=== PATIENT | female | born 1985 | race Caucasian/White ===

== ENCOUNTER 2022-12-16 12:20 | Emergency (ER) | payer OTHER, SELFPAY ==
--- NOTE | ~2022-12-16 | XR_ITS ---
XR foot RT min 3V 12/16/2022 12:46 INDICATION: Right foot pain PROCEDURE: 4 views right foot COMPARISON: No prior studies for comparison. FINDINGS: Fracture, dislocation or subluxation is not identified. Lisfranc joint intact. The soft tis sues appear within normal limits. No foreign bodies are identified. IMPRESSION: 1: NO ACUTE BONE OR JOINT ABNORMALITY IDENTIFIED. Reviewed, dictated and finalized at location B.
[2022-12-16 12:36] VITALS: BP 119/74; PULSE 68; RESP 20; TEMP 36.5; O2SAT 100
--- NOTE | 2022-12-16 12:38 | ED.LOWEXIN ---
HPI - Extremity Injury (Lower) General Chief Complaint: Extremity Injury, Lower Stated Complaint: Right Ankle Injury Time Seen by Provider: 12/16/22 12:30 Source: patient, RN notes reviewed and old records reviewed Mode of arrival: ambulatory Limitations: no limitations History of Present Illness HPI Narrative: 37 year old female presents to [facility] with complaints right ankle foot injury which occurred yesterday when she stepped a plastic toy fish which caused her to twist her ankle causing pain to the lateral foot.Patient reports increased pain to the lateral right foot and plantar aspect of foot states pain 4-5 at rest but 10 with ambulation. Patient has strong pedal pulse to right foot, foot warm and mobility intact swelling is present to lateral aspect of right foot with mild bruising to plantar aspect of right foot. MD complaint: ankle injury and foot injury (right) Onset (ago): day(s) (1) Injury: Right: ankle and foot Type of Injury: inversion and other Place: home Severity scale (1-10): 5 Treatments prior to arrival: cold therapy and other (Ibuprofen) Related Data Home Medications Medication Instructions Recorded Confirmed norethindrone (contraceptive) 0.35 mg 12/16/22 mg tablet sertraline 50 mg tablet mg 12/16/22 Allergies Allergy/AdvReac Type Severity Reaction Status Date / Time morphine Allergy Rash Verified 12/16/22 12:34 Review of Systems Review of Systems: CONSTITUTIONAL: Denies fever, chills, or sweats. CARDIOVASCULAR: Denies chest pain, palpitations, or edema. RESPIRATORY: Denies cough or dyspnea. SKIN: Denies rash or itching. Denies laceration or abrasions MUSCULOSKELETAL: Reports pain and swelling to lateral aspect of right foot after inversion injury to right ankle NEUROLOGIC: Denies numbness, or weakness. All systems reviewed & are unremarkable except as noted in HPI and below PMFSH Past Medical History Medical History (Updated 12/16/22 @ 13:06 by Shira Corbett NP) Anxiety and depression Fracture of left foot Surgical History Surgical History (Updated 12/16/22 @ 12:52 by Shira Corbett NP) Hx of appendectomy Previous section Family History Family History (Updated 12/16/22 @ 12:53 by Shira Corbett NP) Mother Family history of thyroid problem Social History Social History (Updated 12/16/22 @ 12:53 by Shira Corbett NP) Smoking packs per day: 0.5 Smoking cigarettes per day: 10.0 Years smoked: 17 Smoking pack-years: 8.50 Smoking status: Current every day smoker Tobacco type: cigarettes Alcohol intake: current Alcohol use details: social Substance use type: does not use Living arrangements: with family Gender identity (if verbalized by the patient): Female Comments At time of signature, agree with nursing past medical, surgical, social and family history. There is no relevant family history pertinent to the presenting complaint Exam Narrative: GENERAL: Well-appearing, well-nourished, and in no acute distress. HEAD: Normocephalic, atraumatic. EYES: PERRLA, conjunctivae clear NECK: Supple. CHEST: Speaks in full sentences. No respiratory distress. HEART: Regular rate and rhythm. Normal and equal peripheral pulses. EXTREMITIES:right foot/ankle has normal strength and sensation, normal range of motion.Positive for edema right lateral foot ecchymosis. 5/5 strength with [xxx] flexion and extension. Normal sensation with sensitivity to light touch and pain. No point tenderness.? ?No open wounds, no skin tenting, no devitalized tissue or atrophy, no trophic changes, no obvious deformity, alignment normal, nearby joints and structures intact. Distal pulses palpable and equal bilaterally, skin warm, dry, pink. Capillary refill less than 3 seconds. Course Course Emergency Course: Patient is aware of diagnosis, understands and agrees to treatment plan. Anticipatory guidance given. Patient agrees to fol
== END 2022-12-16 13:11 | disposition home or self-care (01) ==
PROVIDERS: Emergency Provider Registered Nurse
DX: S90.31XA Contusion of right foot, initial encounter (principal); W22.8XXA Striking against or struck by other objects, initial encounter; F41.9 Anxiety disorder, unspecified; F32.A Depression, unspecified
CPT/HCPCS: 73630; 99213; G0463